=== PATIENT | male | born 1950 | race Caucasian/White ===

== ENCOUNTER → 2018-06-23 | Outpatient (CLI) | payer OTHER, MEDICARE ==
[~2018-06-23] MED LIST: ESCI20TA PO; HYDR25TA6 PO; POTA20PA25 PO; TAMS0.4C2 PO; TRAZ50TA66 PO
[2018-06-23 12:04] LABS: ALANINE AMINOTRANSFERASE 31 U/L (12-78); ALBUMIN 3.5 g/dL (3.4-5.0); ANION GAP 8 mmol/L (5-15); CALCIUM 9.2 mg/dL (8.5-10.1); CHLORIDE 106 mmol/L (98-107); CREATININE 1.23 mg/dL (0.7-1.3)
[2018-06-23 12:06] LABS: ALKALINE PHOSPHATASE 172 U/L (45-117); BILIRUBIN,TOTAL 0.6 mg/dL (0.2-1.0)
[2018-06-23 12:27] LABS: MICROSCOPIC AUTO
== END | disposition home or self-care (01) ==
LOC: STAR 10:40
PROVIDERS: ATTEND Student in an Organized Health Care Education/Training Program
DX: Z01.818 Encounter for other preprocedural examination (principal); N20.2 Calculus of kidney with calculus of ureter
CPT/HCPCS: 36415; 80053; 81001; 87077; 87086; 87186; 93005

== ENCOUNTER 2018-07-15 10:44 | Day surgery (SDC) | payer MEDICARE, OTHER ==
[~2018-07-15] VITALS: Ht 180.3 cm; Wt 86.8 kg
[2018-07-15 11:24] VITALS: BP 158/93
[2018-07-15] MEDS ORDERED: LACTATED RINGERS 1,000 ML IV SCH (11:29)
[2018-07-15] MEDS ORDERED: ROCURONIUM 10MG/ML,5ML ONE (11:36)
[2018-07-15] MEDS ORDERED: LIDOCAINE-MPF 2% ,5ML ONE (11:36)
[2018-07-15] MEDS ORDERED: SUCCINYLCHOLINE 20 MG/ML, 10ML ONE (11:36)
[2018-07-15] MEDS ORDERED: PROPOFOL 10 MG/ML, 20ML ONE (11:36)
[2018-07-15] MEDS ORDERED: DEXAMETHASONE 4 MG/ML, 1ML ONE ×2 (11:40)
[2018-07-15 11:46] LABS: MICROSCOPIC AUTO
[2018-07-15 11:48] LABS: CULTURE INDICATED? YES
[2018-07-15 12:18] LABS: BASOPHILS # (AUTO) 0.06 x10^3/uL (0-0.1); BASOPHILS % (AUTO) 1 % (0-1); EOSINOPHILS # (AUTO) 0.22 x10^3/uL (0-0.4); EOSINOPHILS % (AUTO) 4 % (1-7); LYMPHOCYTES # (AUTO) 2.34 x10^3/uL (1-3.4); LYMPHOCYTES % (AUTO) 41 % (22-44); MD NO; MEAN CORPUSCULAR HEMOGLOBIN 31.8 pg (27.5-34.5); MEAN CORPUSCULAR HGB CONC 34.8 g/dL (33.2-36.2); MEAN CORPUSCULAR VOLUME 91.4 fL (81-97); MEAN PLATELET VOLUME 7.4 fL (7.4-10.4); MONOCYTES # (AUTO) 0.54 x10^3/uL (0.2-0.8); MONOCYTES % (AUTO) 10 % (2-9); NEUTROPHILS # (AUTO) 2.51 x10^3/uL (1.8-6.8); NEUTROPHILS % (AUTO) 44 % (42-75); PLATELET COUNT 263 x10^3/uL (130-400); RED BLOOD COUNT 4.95 x10^6/uL (4.38-5.82); RED CELL DISTRIBUTION WIDTH 12.7 % (9.4-14.8)
[2018-07-15 12:27] LABS: INTERNATIONAL NORMALIZED RATIO 1.12 (0.93-1.1); PROTHROMBIN TIME 11.8 Seconds (9.6-11.5)
[2018-07-15] MEDS ORDERED: FENTANYL PF 100 MCG/2ML ONE (13:48)
[2018-07-15] MEDS ORDERED: MIDAZOLAM 1 MG/ML, 2ML ONE (13:49)
[2018-07-15] MEDS ORDERED: LORazepam 2 MG/ML, 1ML IVPush PRN (14:00)
[2018-07-15] MEDS ORDERED: hydrALAzine 20 MG/ML, 1ML IV PRN (14:00)
[2018-07-15] MEDS ORDERED: HYDROmorphone 2 MG/ML, 1ML IVPush PRN (14:00)
[2018-07-15] MEDS ORDERED: OXYcodone 5 MG/5 ML ORAL.SOL UDC PO PRN (14:00)
[2018-07-15] MEDS ORDERED: FENTANYL PF 100 MCG/2ML IV PRN (14:00)
[2018-07-15] MEDS ORDERED: METOCLOPRAMIDE 5 MG/ML, 2ML IV PRN (14:00)
[2018-07-15] MEDS ORDERED: METOPROLOL 1 MG/ML, 5ML IV PRN (14:00)
[2018-07-15] MEDS ORDERED: ACETAMINOPHEN 325 MG TABLET PO PRN (14:00)
[2018-07-15] MEDS ORDERED: MEPERIDINE/PF 25MG/0.5ML IVPush PRN (14:00)
[2018-07-15] MEDS ORDERED: OMNIPAQUE 350 MG/ML, 50 ML BOTTLE ONE (16:42)
[2018-07-15] MEDS ORDERED: CIPROFLOXACIN/PMX 400MG/200ML 200 ML IV ONE (17:30)
[2018-07-15 18:30] VITALS: BP 146/77
== END 2018-07-15 21:27 | disposition home or self-care (01) ==
LOC: OUT 10:44 → 4NOR 18:00 → OUT 21:27
PROVIDERS: ATTEND Urology
DX: N20.0 Calculus of kidney (principal); N40.0 Benign prostatic hyperplasia without lower urinary tract symptoms; I10 Essential (primary) hypertension; Z79.899 Other long term (current) drug therapy; Z98.890 Other specified postprocedural states
CPT/HCPCS: 36415; 50590; 52356; 74018; 81001; 85025; 85610; 85730; 87086; C1758; C1769; C2617; J0330; J0744; J1100; J2250; J2704; J3010; J3490; J7120; Q9967; G0378; J2370